=== PATIENT | female | born 1950 | race Caucasian/White ===

== ENCOUNTER 2021-11-26 10:28 | Outpatient (CLI) | payer MEDICARE, SELFPAY ==
--- NOTE | 2021-11-26 | IMM_PTH ---
PATIENT: ABIGAIL RODNEY LOC: [facility] U#:[id number] AGE/SX: 71/F ROOM: RE11/26/[address]: Dr. Yakelin Ozuna MD : 1950 BED: DIS: 11/26/2021 SPEC #: [id number] RECD: 11/27/21 13:59 STATUS: FIFI REQ #: [id number] HODAN: 11/26/21 00:[address]: Yakelin Ozuna DEPT: IMMUNOHISTOCHEMISTRY RECD BY: China Urbina ENTERED: 11/27/21 14:01 SP TYPE: IMMUNO OTHR DR: No Primary Care Phys Tissues: Left breast, NOS Procedures: CALPONIN-1 (add) CK5-6 (add) CK8 (add) YUEN-2 (add) E-CAD (add) HER2 JODIE (add) KI-67 (add) P53 (add) ND (add) P40 (add) ER (initial) PHYSICIAN & INSTITUTION [address] [address] SPECIMEN INFORMATION: Tissue Source: Left breast Clinical Info: Left breast calcifications central middle depth Specimen Number: [id number] #1 CPT code: 18693, 00127 x7, 25590 x3 METHODOLOGY: Deparaffinized sections of prefer/formalin-fixed tissue or PAP/DQ stained slides are incubated with monoclonal/polyclonal antibodies/oligonucleotide probes. Localization is made via biotin free immunoperoxidase method. Appropriate controls are performed and reacted as expected. Results on target cell population are indicated in the following table: RESULTS: ANTIBODY / CLONE RESULT P53 (DO-7) positive Ki-67 (30-9) positive, low to moderate CK8 (35dyqdH81) positive CK5-6 (D5 & 1684) positive Calponin-1 (UN874Q) positive P40 (BC28) positive E-Cad (ECH-6) positive YUEN-2 (SP21) positive, focal and weak MORPHOMETRIC ANALYSIS ER (clone 6F11) >95%, strong intensity ND (clone 16/1E2) >95%, moderate intensity Her-2Neu (clone CB11) 1+ (negative) The prognostic test for HER2 is performed on formalin-fixed paraffin embedded tissue. A 3+ (positive) staining pattern is defined as intense, homogeneous, complete, circumferential membranous staining in >10% of contiguous tumor cells. A similar weak (2+) staining pattern is interpreted as equivocal. LUDIVINA follow-up testing is recommended for all equivocal cases. Positivity/negativity for ER/ND is reported if > or < 1% of the tumor cells are immuno- reactive, respectively. The ASCO/CAP criteria is used for scoring. Reference: Journal of Clinical Oncology, 2013; 31:9710-9400 & 2010; 16:8246-8699. Duration of fixation: 8.5 Hrs; Sample Adequate: Yes. These assays have not been validated on decalcified tissues. Results should be interpreted with caution given the likelihood of false negativity on decalcified specimens. These tests were developed and their performance characteristics determined by [facility]. They may not have been cleared or approved by the U.S. Food and Drug Administration. The FDA has determined that such clearance or approval is not necessary. The above immunohistochemical/dualISH markers are ordered by Dr. Ramirez and reviewed by the Pathologist. 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 SJ:hailey 11/28/2021
--- NOTE | 2021-11-26 11:15 | BRBX_PTH ---
PATIENT: ABIGAIL RODNEY LOC: [facility] U#:[id number] AGE/SX: 71/F ROOM: RE11/26/[address]: Dr. Yakelin Ozuna MD : 1950 BED: DIS: 11/26/2021 SPEC #: [id number] RECD: 11/26/21 11:46 STATUS: FIFI REQ #: [id number] HODAN: 11/26/21 11:[address]: Yakelin Ozuna DEPT: SURGICAL PATHOLOGY RECD BY: Aurora Price ENTERED: 11/26/21 13:22 SP TYPE: BREAST BX OTHR DR: No Primary Care Phys Tissues: Left breast, NOS Procedures: Surgery Specimen Level IV HEADER OPERATION: Left breast stereotactic biopsy PRE-OP DIAGNOSIS: Left breast calcifications central middle depth TISSUE SUBMITTED: Left breast core tissue ISCHEMIC TIME: 1 minute FIXATION TIME: 8.5 hours MICROSCOPIC DIAGNOSIS Left breast central mid, stereotactic core biopsy: Ductal carcinoma in situ with the following characteristics: Nuclear grade ? 3/3 Type ? comedo Microcalcifications ? present in neoplastic and non-neoplastic tissue. Other findings ? nonproliferative fibrocystic change and adenosis. See comment. AM:hailey 11/27/2021 COMMENT Immunohistochemistry ([id number]) supports the above diagnosis. Case has been reviewed in consultation with Dr. Lynn who concurs with the above diagnosis. IDC:BRIAN MICROSCOPIC DESCRIPTION Slides are reviewed. GROSS DESCRIPTION Received in fixative is one container labeled with the patient's name and designated left breast. The specimen consists of multiple elongated fragments of garcia-yellow fibroadipose tissue that in aggregate measure 7.5 x 3 x 0.3 cm. The entire specimen is submitted in three cassettes. / BRIAN:hailey 11/26/2021 TC:0 CPT: 79915
--- NOTE | 2021-11-26 11:24 | PCM.OPRPT ---
Report of Operation Date of Procedure: 11/26/21 Pre-Operative Diagnosis: abnormal calcifications on left breast mammograms Post-Operative Diagnosis: same Surgery/Procedure Performed:: left stereotactic breast biopsy Description of Surgical Findings:: possible degenerating fibroadenoma Surgeon: Yakelin Ozuna Type of Anesthesia: Local MAC and Local Specimen's removed: left breast tissue Estimated Blood Loss (mL): minimal Description of Procedure: After informed consent was given, the patient was brought into the Breast Biopsy suite. Appropriate time out protocol was followed. The patient was placed in the prone position on the stereotactic biopsy table. The patient?s left breast was then placed in the opening at the head of the biopsy table. A photography colorist compression mammogram was then obtained in the CC view. The suspicious radiological lesion was thus identified. Stereo pictures of the lesion were then taken for XYZ coordinates. The Mammotome biopsy stylus was then positioned where it would be entering into the patient?s breast. The skin at this site was then cleansed with a surgical skin preparation. The skin and subcutaneous tissues at this site were then infiltrated with 1% xylocaine. A small skin incision was made with an 11 blade scalpel. The biopsy stylus was then positioned into the patient?s breast at the proper coordinates of depth. Using the Mammotome vacuum-assist device, several core samples of breast tissue were obtained. A specimen mammogram was the obtained. It revealed that the abnormal calcifications were within the specimen. I reviewed this personally and concluded that the tissue sampling was adequate. A hemostatic marker clip was then placed into the biopsy cavity and a photography colorist film revealed that it was properly deployed. The patient was then placed in the supine position and pressure was applied to the breast until no active bleeding was noted. A nylon suture was placed to reapproximate the skin. A unilateral mammogram in the CC and MLO view were then taken which revealed that the marker clip was in the same area as the previous suspicious lesion. The patient tolerated the procedure well and was discharged from the Breast Biopsy suite in good condition. Complications none
== END 2021-11-26 23:59 | disposition home or self-care (01) ==
PROVIDERS: Visit Provider Surgery
DX: D05.12 Intraductal carcinoma in situ of left breast (principal)
CPT/HCPCS: 19081; 88305; 88341; 88342; J7050; A4648

== ENCOUNTER 2021-12-10 12:38 | Day surgery (SDC) | payer MEDICARE, SELFPAY ==
[2021-12-10] VITALS (10 sets, daily range): BP systolic 112–132; BP diastolic 59–72; PULSE 77–92; RESP 14–17; TEMP 36.3–36.9; O2SAT 94–98; BMI 29.9
--- NOTE | 2021-12-10 09:05 | PCM.HP.BLA ---
History and Physical Date of Admission: 12/10/21 Marcy Roper 1950 ? ? REFERRING PHYSICIAN: Diana Galindo MD ? CHIEF COMPLAINT: left breast pathology ? HPI: The patient is a 71 year old female with newly diagnosed left breast DCIS> She is s/p left stereotactic breast biopsy on 11/26/2021 - left lower outer. She notes bruising at the site. ? Pathology report from [facility]: Ductal carcinoma in situ Nuclear grade - 3/3 Type - comedo microcalcifications - present in neoplastic and non-neoplastic tissue Other findings - nonproliferative fibrocystic change and adenosis ? P53 Positive Ki-67 Positive, low to moderate CK8 Positive CK5-6 Positive Calponin-1 Positive P40 Positive E-cad Positive YUEN-2 Positive, focal and weak ? ER >95% NV >95% Her 2 Negative ? ? PAST MEDICAL HISTORY ? Allergy, unspecified not elsewhere classified ? ? nasal ? Diverticulosis of colon (without mention of hemorrhage) ? ? Gastroesophageal reflux disease without esophagitis 12/08/2017 ? Internal hemorrhoids without mention of complication ? ? Osteopenia ? ? PMH - PAST MEDICAL HISTORY OF ? ? migraines ? PMH - PAST MEDICAL HISTORY OF ? ? depression and anxiety ? Unspecified constipation ? ? Unspecified essential hypertension ? ? PAST SURGICAL HISTORY ? BX BREAST W/DEVICE 1ST LESION STEREOTACTIC GUID Left 11/26/2021 ? DELIVERY ONLY ? ? ? , low cervical x 2 ? COLONOSCOPY FLX DX W/COLLJ SPEC WHEN PFRMD ? 10/23/2008 ? COLONOSCOPY FLX DX W/COLLJ SPEC WHEN PFRMD ? 11/08/2018 ? Colonoscopy ? TONSILLECTOMY PRIMARY/SECONDARY <AGE 12 ? ? ? Tonsillectomy ? US FNA BREAST LT Left 2016 ? ? Current Outpatient Medications ? lisinopril (ZESTRIL, PRINIVIL) 20 mg tablet Take 1 tablet by mouth once daily. ? omeprazole (PRILOSEC) 20 mg capsule Take 1 capsule by mouth once daily. ? venlafaxine ER (EFFEXOR XR) 37.5 mg 24 hr capsule Take 1 capsule by mouth once daily. ? mometasone furoate (NASONEX NASAL) Use in the nose. ? magnesium oxide 200 mg magnesium chew Take 1 tablet by mouth. ? melatonin 10 mg cap Take 1 capsule by mouth daily at bedtime. ? MULTIVITAMIN WITH MINERALS (MULTI-VIT 55 PLUS ORAL) Take by mouth once daily. ? ASPIRIN/ACETAMINOPHEN/CAFFEINE (EXCEDRIN EXTRA STRENGTH ORAL) Take by mouth as needed. ? cholecalciferol (VITAMIN D3) 2,000 unit tablet Take 1 tablet by mouth once daily. ? ? ALLERGIES: Patient has no known allergies. ? PERSONAL HISTORY: Social History ?Tobacco Use ? Smoking status: Former Smoker ? Smokeless tobacco: Never Used Vaping Use ? Vaping Use: Never used Substance Use Topics ? Alcohol use: Yes ? Drug use: No ? FAMILY HISTORY ? Alzheimer's Disease Mother ? ? Cancer Father ? ? lung ? Hypertension Sister ? ? Diabetes Sister ? ? Alzheimer's Disease Sister ? ? Diabetes Brother ? ? Allergies Brother ? ? Hypertension Brother ? ? ? REVIEW OF SYSTEMS: ?General:???The patient denies fatigue, denies weight loss, denies weight gain, denies feeling hot, and denies feelings of cold. ?Eyes: ?The patient denies glaucoma, denies eye injury/surgery, wears glasses or contacts. ?Ear/Nose/Throat: ?The patient denies allergies, denies hayfever, denies ear infections, and NOTES bloody noses. ?Cardiovascular: ?The patient denies chest pain, denies heart disease, NOTES high blood pressure,denies cardiac stent, denies prior heart attack, denies irregular heart beat, denies high cholesterol, ?denies poor circulation, denies heart failure, other cardiac issues, denies claudication, denies cold feet, denies peripheral arterial stent. ?Respiratory: ?The patient denies tuberculosis, denies pneumonia, denies frequent cough, denies pulmonary embolism, denies shortness of breath, and denies coughing up blood. ?Gastrointestinal: ?The patient denies difficulty swallowing, NOTES acid reflux, denies ulcers, denies vomiting, denies jaundice/hepatitis, denies gallbladder problems, denies black or tarry stools, denies hemorrhoids, denies bleeding from rectum, denies diverticulitis, NOTES constipation, denies diarrhea, denies loss of stool control, and denies hernias. ?Kidney/Bladder: ?The patient denies kidney stones, NOTES urine infections, and denies bloody urine. ?Skin: ?The patient denies a history of skin cancer, NOTES bleeding/changing moles, and denies a history of skin rash. ?Neurologic: ?The patient denies a history of epilepsy/convulsions, NOTES headaches, denies head/spinal injuries, and denies stroke/TIA. ?Psychiatric: ?The patient denies psychiatric medications, NOTES depression, and denies voices, denies substance abuse. ?Endocrine: ?The patient denies thyroid disorders, denies diabetes, and denies hormonal problems. ?Hematologic: ?The patient denies a history of bruising, denies bleeding, and denies anemia, denies blood clots. ?Infections: ?The patient NOTES a history of measles and mumps, denies rheumatic fever, and denies sexually transmitted diseases. ?Musculoskeletal: ?The patient denies back pain/injury, denies back problems, NOTES sciatica, NOTES knee/foot trouble, denies arthritis, or denies gout. ?Obstetrical - menarche onset age 14, 2 para 2, first age 21, BCP use age 22 for 5-7 y, breast feeding 6 months, menopause 1999 When was patient's last Mammogram screening? 2021 ?Last Colonoscopy: ?2018 Kaylan Guardado RN ? ? ? PHYSICAL EXAMINATION: General: ?The patient is 71 year old female, well nourished, well hydrated in no acute distress. ?The patient is oriented to time, place, and person. ? VITALS: Blood pressure 122/72, pulse 95, temperature 36.8 ?C (98.2 ?F), height 157.5 cm (5' 2), weight 75.3 kg (166 lb), SpO2 98 %. Body mass index is 30.36 kg/m?. ? ? Head ??Normocephalic. EOM intact with sclera clear and no icterus noted. . Neck - supple with no jugular venous distention noted. Trachea is midline. ?No thyroid enlargement or thyroid nodules detected. No masses noted. Chest/breast ??no asymmetry of breasts noted, no suspicious skin lesions noted, no nipple discharge and both nipples everted, no breast masses noted, bruising of lower outer left breast Lungs ??clear to auscultation. Normal breath sounds. No rales/rhonchi/wheezing noted. No labored breathing noted, such as retractions. No cough heard. Heart ??normal S1 and S2 auscultated. No rubs/clicks/murmurs noted. Regular rate. Abdomen ??soft and benign. . Extremities ??no calf tenderness noted. No pitting edema noted. Skin ??normal skin integrity. Lymph ??no cervical adenopathy detected, no supraclavicular adenopathy detected, no axillary adenopathy detected Neurological ??gait normal, no focal deficits noted Psych ??calm and appropriate ? IMPRESSION: left breast DCIS ? PLAN: I have discussed the above with the patient. I have discussed options for surgical treatment - lumpectomy/XRT versus mastectomy, she wishes former I have described procedure to the patient I have counseled the patient as to the risks of the procedure, including but not limited to: infection, bleeding, injury to any blood vessels/nerves, scar tissue, cosmetic deformity, seroma, need for further surgery if margins not cleared, wound infections, complications of anesthesia, etc. ? the patient understands. The patient wishes to proceed. ? ? I have answered all questions to the patient?s satisfaction and the patient has no further questions. ? . Diagnoses: (D05.12) Ductal carcinoma in situ (DCIS) of left breast (primary encounter diagnosis)
--- NOTE | 2021-12-10 12:31 | BI_ITS ---
SURGICAL BREAST SPECIMEN RADIOGRAPH CLINICAL: Document presence of tissue clip marker in biopsy specimen. FINDINGS: Specimen shows presence of tissue clip marker. Electronically Signed: Timoteo Cano MD at 15:47 EDT , BI/Breast Biopsy Specimen
[2021-12-10] MEDS: Lactated Ringers 1,000 ML 15 ML IV ×2 (13:00→15:15)
--- NOTE | 2021-12-10 14:10 | BRBX_PTH ---
PATIENT: ABIGAIL RODNEY [place] [facility] [id number] AGE/SX: 71/F ROOM: RE12/10/[address]: Dr. Yakelin Ozuna MD : 1950 BED: DIS: 12/10/2021 SPEC #: [id number] RECD: 12/10/21 15:00 STATUS: FIFI RECami #: [id number] HODAN: 12/10/21 14:[address]: Yakelin Ozuna DEPT: SURGICAL PATHOLOGY RECD BY: China Urbina ENTERED: 12/10/21 15:37 SP TYPE: BREAST BX OTHR DR: Dr. Diana Galindo MD Tissues: A - Left breast, NOS B - Left breast, NOS Procedures: Surgery Specimen Level IV HEADER OPERATION: Left breast lumpectomy PRE-OP DIAGNOSIS: Left breast DCIS TISSUE SUBMITTED: A ? Left breast lumpectomy, stitch at skin is superior, two long stitches inferior, one short stitch anterior, one long stitch lateral, B ? Left breast additional tissue, inferior margin, suture at tumor side MICROSCOPIC DIAGNOSIS A. Left breast, lumpectomy: Intraductal hyperplasia with focal atypical intraductal hyperplasia. Fibrocystic change. Microcalcifications. Focal adenosis. No evidence of malignancy. B. Left breast, additional inferior margin, biopsy: Fibrocystic change with focal intraductal hyperplasia without atypia. No evidence of malignancy. AM:hailey 12/13/2021 COMMENT Reference is made to the patient's previous left breast stereotactic core biopsy ([id number]) in which ductal carcinoma in situ was identified. BREAST CANCER SUMMARY(inclusive of previous biopsy, [id number]) Procedure: Lumpectomy Specimen: Partial breast Laterality: Left breast Ductal Carcinoma In Situ: Size of DCIS: 2 x 2 x 2 mm Number of blocks: 2 of 13 blocks Architectural pattern: Solid and comedo with calcifications Nuclear grade: 3/3 Necrosis: Present Margins: Uninvolved by in situ carcinoma. Distance at closest margin: Not applicable. Regional lymph node: Not submitted. Microcalcifications: Present in ductal carcinoma in situ and non-neoplastic tissue. Additional Pathologic Findings: Fibrocystic change, usual intraductal hyperplasia with focal atypical intraductal hyperplasia (focal) and adenosis. Ancillary Studies: Previously performed on same tumor ([id number]) ER: >95%, strong intensity NV: >95%, moderate intensity Dtb2bbb: negative (1+) PATHOLOGIC STAGE: T(DCIS) Nx Mx The above summary is in compliance with [employer] [place] [employer] (CAP) Cancer Protocol Checklist and [place] Joint Committee on Cancer (AJCC) Staging Manual, 8th Ed. Case has been reviewed in consultation with Dr. Lynn who concurs with the above diagnosis. IDC:SJ MICROSCOPIC DESCRIPTION Slides are reviewed. GROSS DESCRIPTION A - Received fresh for OR consultation labeled with the patient's name is a specimen designated left breast. The specimen consists of a lumpectomy measuring 6 x 5 x 4 cm and weighing 44 gm. The specimen is inked as follows: anterior - yellow, posterior - black, superior - blue, inferior - green, medial - red and lateral - orange. Serial sections reveal a blood-filled biopsy cavity measuring 2 x 1.6 x 1.5 cm. An unremarkable ellipse of skin is present in the anterior surface measuring 1.8 x 0.6 cm. No distinct mass lesion is identified. The biopsy cavity is present at 0.6 cm from the closest (inferior) margin of resection. The gross is discussed with the surgeon intraoperatively. Buyer Intern sections are submitted in 12 cassettes as follows: 1 & 2 ? skin and perpendicular inked margins, 3-7 ? biopsy cavity with adjacent soft tissue, 8 ? uninvolved breast parenchyma adjacent to biopsy cavity, 9-12 ? uninvolved breast parenchyma away from biopsy cavity. B - Received in fixative is one container labeled with the patient's name and designated left breast additional tissue inferior margin. The specimen consists of an irregular fragment of garcia-yellow fibrofatty tissue measuring 5.5 x 4.2 x 1.8 cm. A suture is present at one margin. This margin is inked in yellow ink. The remainder of the specimen is inked in black ink. The specimen is serially sectioned and totally submitted in six cassettes after additional fixation. / AM:hailey 12/11/2021 TC:5 CPT: 22600 x2
[2021-12-10] MEDS: Cefazolin 2 GM in 0.9% Normal Saline 100 ML IV (14:14)
[2021-12-10] MEDS: Lidocaine 1% /Epi 1:100 (20ml) 20 ML Vial (14:22)
--- NOTE | 2021-12-10 15:45 | OP.PCM_ITS ---
Report of Operation Date of Procedure: 12/10/21 Pre-Operative Diagnosis: left breast DCIS Post-Operative Diagnosis: same Surgery/Procedure Performed:: left breast lumpectomy via wire localization Description of Surgical Findings:: margins close inferior margin, additional posterior margin taken Surgeon: Yakelin Ozuna Type of Anesthesia: MAC/Supplemental/Local Anesthesiologist: Destinee Merida Specimen's removed: left breast tissue, additional posterior margin Estimated Blood Loss (mL): 20 ml Fluids Replaced: 1000 ml RL Description of Procedure: After informed consent was given, the patient was brought into the Breast Stereotactic Radiology suite. Appropriate time out protocol was followed. The patient was then placed in the prone position on the [place] stereotactic table. The patient?s left breast was placed in the opening at the head of the table. A shop tailor apprentice compression mammogram was then obtained in the CC view. The marker clip that was previously placed was identified. Stereo pictures of the lesion were then taken for XYZ coordinates. The Kopans needle was then positioned where it would be entering into the patient?s breast. The skin at this site was then cleansed with a surgical skin preparation. The skin and subcutaneous tissues at this site were then infiltrated with 1% xylocaine. The Kopans needle was then positioned into the patient?s breast at the proper coordinates of depth. A shop tailor apprentice film was obtained which revealed the wire in proper position. The patient was then placed in the supine position and the wire was taped into place. A unilateral mammogram in the CC and MLO view were then taken for use in the OR. The patient tolerated this portion of the procedure well and was brought to the AC awaiting surgery in the OR. The patient was then brought to the Operating Room. Appropriate time out protocol was followed. The patient was then placed on the operating table in the supine position. A wire had already been placed in the stereotactic biopsy room in the radiology department as described above. The left breast with the wire in placed was then prepped with a sterile surgical skin preparation and sterile surgical drapes were placed. The skin and subcutaneous tissues at the site of the breast lesion was then infiltrated with 1% xylocaine with epinephrine. A transverse skin incision was then made at the wire entrance site, at the mid superior aspect of the left breast with a 15 blade scalpel and carried down through to the subcutaneous tissues. Hemostasis was controlled with electrocautery. The wire was then palpated out within the breast tissue. The breast tissue surrounding the wire was then carefully palpated out and from the surrounding tissues using electrocautery. The breast tissue, once from the breast, was then forwarded to the radiology department, where a specimen mammogram revealed that the marker clip was within the specimen. The breast tissue was then forwarded to pathology for analysis. Pathology review revealed that the closest margin was inferior with a measurement of 6 mm. Additional breast tissue was therefore excised from the inferior margin. The wound cavity was carefully examined. No further suspicious tissue was palpated or visualized. Hemostasis was carefully controlled with electrocautery. The subdermal tissues were then approximated with vicryl suture. The incision was then reapproximated close using running monocryl suture. Cavilon and steristrips were then placed to reinforce the skin closure. Sponge, needle, and instrument count were verified and correct at the time of skin closure. A sterile dressing was then applied. The patient was then brought to the Recovery Room in stable condition. Complications none noted Admit VTE Documentation VTE Mechan Device Prophylaxis: SCD's
--- NOTE | 2021-12-10 15:50 | DCINST_ITS ---
Discharge Instructions Follow Up Care Test Results: Test results from this visit will be discussed in further detail at your follow-up appointment, if applicable. Discharge Plan Admission Attending Provider: Yakelin Ozuna Primary Care Provider: Diana Galindo Instructions Additional Instructions / Restrictions: Recommended pain control regimen - May take 600 mg ibuprofen (Motrin) and then in 3-4 hours, may take 650 mg acetaminophen (Tylenol), then in 3-4 hours may take 600 mg ibuprofen, then in 3- 4 hours may take 650 mg acetaminophen and so on for 2-3 days May take narcotic pain medication for pain that is not controlled by above and at night for comfort through the night Leave dressings in place May shower, do not scrub in the areas of the dressings as they may unravel. Do not soak - no tub baths/swimming Ice applied to areas of discomfort may help Regular diet as tolerated, drink plenty of fluids. For breast surgeries - wear supportive bra during the day to prevent the weight of your breasts from pulling on the incisional site. Please call my office for an appointment to see me in 1-2 weeks. Office number is If any questions, please call my office at and ask the chief operator reformer for the general surgery nurses desk Discharge Orders/Prescriptions Prescriptions: New hydrocodone-acetaminophen 5-325 mg tablet 1 tab PO Q8H 5 Days Qty: 15 RF: 0 No Action lisinopril 20 mg Tablet 20 mg PO QHS RF: 0 venlafaxine [Effexor] 37.5 mg Tablet 37.5 mg PO QHS RF: 0 magnesium 250 mg Tablet 250 mg PO DAILY RF: 0 multivitamin Capsule 1 cap PO DAILY RF: 0 omeprazole 20 mg Tablet,Delayed Release (Dr/Ec) 20 mg PO QHS RF: 0 cholecalciferol (vitamin D3) [Vitamin D3] 50 mcg (2,000 unit) Capsule 50 mcg PO DAILY RF: 0 melatonin 10 mg Tablet,Disintegrating 10 mg PO QHS RF: 0 Referrals / Follow Up: Diana Galindo MD [Primary Care Provider] - Disposition Disposition (needs filled in before D/C Order can be placed): Home, Self Care
[2021-12-10] MEDS: HYDROcodone Bitartrate/Apap 5/325 Tablet PO (17:03)
== END 2021-12-10 23:59 | disposition home or self-care (01) ==
LOC: SDC 12:42 → AC 12:43
PROVIDERS: PCP Internal Medicine; Referring Provider Surgery; Visit Provider Surgery
PROC: (CPT 19301; principal; 2021-12-10 13:55)
DX: N60.92 Unspecified benign mammary dysplasia of left breast (principal); Z87.891 Personal history of nicotine dependence; I10 Essential (primary) hypertension; Z79.82 Long term (current) use of aspirin; Z79.899 Other long term (current) drug therapy; N60.22 Fibroadenosis of left breast; K21.9 Gastro-esophageal reflux disease without esophagitis; F32.A Depression, unspecified; F41.9 Anxiety disorder, unspecified; G25.81 Restless legs syndrome
CPT/HCPCS: 19301; 00404; 19281; 76098; 88305; J7050; J7120; J2405